=== PATIENT | female | born 1970 | race Caucasian/White ===

== ENCOUNTER 2018-06-15 02:39 | Emergency (ER) | payer SELFPAY ==
[~2018-06-15] VITALS: Ht 170.2 cm; Wt 63.5 kg
[2018-06-15] MEDS ORDERED: LEVOTHYROXIN TAB 50MCG (02:49)
--- NOTE | 2018-06-15 02:52 | NUR ---
DR MILAN LIVINGSTON MD AT BEDSIDE FOR MSE.
[2018-06-15] MEDS ORDERED: DOXYCYCLINE HYCLATE 100 MG TABLET PO ONE (03:00)
[2018-06-15] MEDS ORDERED: DOXYCYCLINE HYCLATE 100 MG TABLET ONE (03:03)
--- NOTE | 2018-06-15 03:05 | NUR ---
Patient discharged to home in stable conditon. Written and verbal after care instructions given. Patient verbalizes understanding of instructions. Pt ambulated from ER w/ steady gait. No distress noted. Pt took all personal belongings.
[2018-06-15 03:07] VITALS: BP 136/88
== END 2018-06-15 03:08 | disposition home or self-care (01) ==
LOC: ER 02:44
DX: S60.562A Insect bite (nonvenomous) of left hand, initial encounter (principal); L03.114 Cellulitis of left upper limb; Z88.0 Allergy status to penicillin; W57.XXXA Bitten or stung by nonvenomous insect and other nonvenomous arthropods, initial encounter; Y93.89 Activity, other specified; Y92.89 Other specified places as the place of occurrence of the external cause; Y99.8 Other external cause status
CPT/HCPCS: A4663

== ENCOUNTER 2019-06-07 23:37 | Emergency (ER) | payer OTHER ==
[~2019-06-07] VITALS: Ht 170.2 cm; Wt 61.2 kg
[~2019-06-07 23:37] MED LIST: LEVOTHYROXIN TAB 50MCG
[2019-06-07] MEDS ORDERED: VITAMIN E PO (23:51)
[2019-06-07] MEDS ORDERED: LEVO50TA8 PO (23:51)
[2019-06-07] MEDS ORDERED: CHOL200074 PO (23:51)
[2019-06-07] MEDS ORDERED: FOLI0.8T PO (23:51)
--- NOTE | 2019-06-07 23:54 | NUR ---
ER physician at bedside.
[2019-06-08] MEDS ORDERED: IV NORMAL SALINE 1000 ML BAG IV ONE (00:15)
[2019-06-08 00:18] LABS: BASOPHILS % (AUTO) 0.4 % (0.0-2.0); EOSINOPHILS # (AUTO) 0.2 K/uL (0.0-0.7); EOSINOPHILS % (AUTO) 1.9 % (0.0-7.0); HEMATOCRIT 43.8 % (31.2-41.9); HEMOGLOBIN 14.8 g/dL (10.9-14.3); LYMPHOCYTES # (AUTO) 4.1 K/uL (20.0-40.0); LYMPHOCYTES % (AUTO) 43.7 % (20.5-51.5); MEAN CORPUSCULAR HGB CONC 34 g/dL (32.3-35.6); MONOCYTES # (AUTO) 0.5 K/uL (2.0-10.0); MONOCYTES % (AUTO) 5.9 % (0.0-11.0); NEUTROPHILS # (AUTO) 4.5 K/uL (1.8-8.9); NEUTROPHILS % (AUTO) 48.1 % (38.5-71.5); PLATELET COUNT (AUTO) 229 K/uL (179-408); RED BLOOD CELL COUNT(AUTO) 4.92 MIL/uL (3.63-4.92); WHITE BLOOD COUNT (AUTO) 9.4 K/uL (3.8-11.8)
--- NOTE | 2019-06-08 00:23 | NUR ---
x-ray techJosh at bedside.
[2019-06-08 00:25] LABS: CREATININE 0.7 mg/dL (0.6-1.3); POTASSIUM 3.4 mmol/L (3.5-5.1)
[2019-06-08] MEDS ORDERED: POTASSIUM BICARBONATE/CIT AC 25 MEQ TABLET.EFF PO ONE (00:45)
[2019-06-08] MEDS ORDERED: POTASSIUM BICARBONATE/CIT AC 25 MEQ TABLET.EFF ONE (00:45)
[2019-06-08 00:50] LABS: BILIRUBIN,DIRECT 0.1 mg/dL (0.0-0.2); BILIRUBIN,TOTAL 0.4 mg/dL (0.2-1.0); TOTAL PROTEIN, SERUM 7.5 g/dL (6.4-8.2)
--- NOTE | 2019-06-08 01:42 | NUR ---
Patient discharged to home in stable conditon. Written and verbal after care instructions given. Patient verbalizes understanding of instructions. patient self ambulatory. Patient denies any pain/discomfort at this time. All personal belongings and exit care package was taken home with patient.
[2019-06-08 01:44] VITALS: BP 150/94
== END 2019-06-08 01:40 | disposition home or self-care (01) ==
LOC: ER 23:38
DX: E86.0 Dehydration (principal); K52.9 Noninfective gastroenteritis and colitis, unspecified; Z88.0 Allergy status to penicillin; Z79.899 Other long term (current) drug therapy
CPT/HCPCS: 36415; 70030-TC; 71045; 84443; 85025; 93005; A4663; J7030

== ENCOUNTER 2019-07-13 19:56 | Emergency (ER) | payer OTHER ==
[~2019-07-13] VITALS: Ht 170.2 cm; Wt 62.6 kg
[~2019-07-13 19:56] MED LIST changes: +CHOL200074 PO; +FOLI0.8T PO; +LEVO50TA8 PO; -LEVOTHYROXIN TAB 50MCG; +VITAMIN E PO
--- NOTE | 2019-07-13 20:04 | NUR ---
Dr. Michele at bedside to evaluate patient.
--- NOTE | 2019-07-13 20:16 | NUR ---
Patient discharged to home in stable conditon. Written and verbal after care instructions given. Patient verbalizes understanding of instructions. Pt appears in no apparent distress. Walked out of ER in stable gait. Denies any chest pain/shortness of breath/tongue swelling. No acute distress noted. Vital signs stable.
[2019-07-13 20:20] VITALS: BP 124/81
== END 2019-07-13 20:22 | disposition home or self-care (01) ==
LOC: ER 19:56
DX: L50.0 Allergic urticaria (principal); Z88.0 Allergy status to penicillin; Z79.899 Other long term (current) drug therapy
CPT/HCPCS: A4663

== ENCOUNTER 2020-07-21 16:28 | Emergency (ER) | payer OTHER ==
[~2020-07-21] VITALS: Ht 170.2 cm; Wt 62.6 kg
--- NOTE | 2020-07-21 16:41 | NUR ---
Dr Mccoy at the bedside for MSE.
[2020-07-21] MEDS ORDERED: FAMOTIDINE. 20 MG/2 ML VIAL IV ONE ×2 (16:45→17:00)
[2020-07-21] MEDS ORDERED: MAG HYDROX/AL HYDROX/SIMETH 30 ML LIQUID UDC PO ONE (16:45)
[2020-07-21] MEDS ORDERED: IV NORMAL SALINE 1000 ML BAG IV ONE (16:45)
[2020-07-21] MEDS ORDERED: GLUCAGON,HUMAN RECOMBINANT 1 MG VIAL IVP ONE (16:45)
[2020-07-21 17:00] LABS: BASOPHILS % (AUTO) 0.4 % (0.0-2.0); EOSINOPHILS # (AUTO) 0.1 K/uL (0.0-0.7); HEMATOCRIT 41.8 % (31.2-41.9); HEMOGLOBIN 14.4 g/dL (10.9-14.3); LYMPHOCYTES # (AUTO) 3.1 K/uL (20.0-40.0); LYMPHOCYTES % (AUTO) 41.9 % (20.5-51.5); MEAN CORPUSCULAR HEMOGLOBIN 30.8 uug (24.7-32.8); MEAN CORPUSCULAR HGB CONC 35 g/dL (32.3-35.6); MEAN CORPUSCULAR VOLUME 89.2 fL (75.5-95.3); MONOCYTES # (AUTO) 0.5 K/uL (2.0-10.0); MONOCYTES % (AUTO) 6.1 % (0.0-11.0); NEUTROPHILS # (AUTO) 3.7 K/uL (1.8-8.9); NEUTROPHILS % (AUTO) 49.6 % (38.5-71.5); PLATELET COUNT (AUTO) 238 K/uL (179-408); RED BLOOD CELL COUNT(AUTO) 4.69 MIL/uL (3.63-4.92); WHITE BLOOD COUNT (AUTO) 7.5 K/uL (3.8-11.8)
[2020-07-21] MEDS ORDERED: MAG HYDROX/AL HYDROX/SIMETH 30 ML LIQUID UDC ONE (17:00)
[2020-07-21] MEDS ORDERED: GLUCAGON,HUMAN RECOMBINANT 1 MG VIAL ONE (17:00)
[2020-07-21 17:11] LABS: CREATININE 0.9 mg/dL (0.6-1.3); POTASSIUM 3.5 mmol/L (3.5-5.1)
[2020-07-21 17:17] LABS: BILIRUBIN,DIRECT 0.1 mg/dL (0.0-0.2); BILIRUBIN,TOTAL 0.4 mg/dL (0.2-1.0); TOTAL PROTEIN, SERUM 7.4 g/dL (6.4-8.2)
[2020-07-21 17:53] LABS: *URINE HCG, QUAL NEG (NEGATIVE)
--- NOTE | 2020-07-21 18:07 | NUR ---
Pt able to tolorate PO intake, No difficulty swallowing, no c/o nausea.
--- NOTE | 2020-07-21 18:25 | NUR ---
IV removed. Catheter intact and site benign. Pressure and 4x4 gauze applied to site. No bleeding noted.
[2020-07-21 18:26] VITALS: BP 133/80
--- NOTE | 2020-07-21 18:27 | NUR ---
Patient discharged to home in stable condition. Written and verbal after care instructions given. Patient verbalizes understanding of instructions. Stressed follow up or return to ER for worsening s/s.
== END 2020-07-21 18:29 | disposition home or self-care (01) ==
LOC: ER 16:30
DX: T18.128A Food in esophagus causing other injury, initial encounter (principal); X58.XXXA Exposure to other specified factors, initial encounter; Y92.89 Other specified places as the place of occurrence of the external cause; K29.70 Gastritis, unspecified, without bleeding; Z88.0 Allergy status to penicillin; R03.0 Elevated blood-pressure reading, without diagnosis of hypertension
CPT/HCPCS: 36415; 71045; 80048; 80076; 83690; 84484; 84703; 85025; 93005; 96374; 96375; 99285; J1610; J3490; 70030-TC; A4663; J7030